=== PATIENT | male | born 1940 | race Caucasian/White ===

== ENCOUNTER 2018-06-22 10:44 | Emergency (ER) | payer MEDICARE ==
[~2018-06-22] VITALS: Ht 175.3 cm; Wt 124.7 kg
[~2018-06-22 10:44] MED LIST: ACET325 PO; ACETAMINOPHEN; ALLO100 PO; DIURETIC; DOCU100 PO; FINA5; HYDR1TAB94 PO; HYDROCODONE; LISI5 PO; TAMS.4ER PO; TEMA15 PO; [UNRECOGNIZED DRUG - REMARK]
[2018-06-22] MEDS ORDERED: Allegra-D 12 H1 EACH PO (12:12)
== END 2018-06-22 12:55 | disposition home or self-care (01) ==
LOC: ER 10:44
DX: J30.2 Other seasonal allergic rhinitis (principal); J40 Bronchitis, not specified as acute or chronic; Z91.011 Allergy to milk products; Z79.899 Other long term (current) drug therapy; I10 Essential (primary) hypertension
CPT/HCPCS: 71046; 94640; 99283-25

== ENCOUNTER 2019-11-05 11:14 | Emergency (ER) | payer MEDICARE ==
[~2019-11-05] VITALS: Ht 177.8 cm; Wt 127.9 kg
[~2019-11-05 11:14] MED LIST changes: +Allegra-D 12 H1 EACH PO; +CEPH500 PO
[2019-11-05] MEDS ORDERED: ATOR20 (12:44)
== END 2019-11-05 12:57 | disposition home or self-care (01) ==
LOC: ER 11:14
DX: S68.522A Partial traumatic transphalangeal amputation of left thumb, initial encounter (principal); I10 Essential (primary) hypertension; Z79.899 Other long term (current) drug therapy; Z91.011 Allergy to milk products; Z23 Encounter for immunization; W31.2XXA Contact with powered woodworking and forming machines, initial encounter
CPT/HCPCS: 73120; 90471; 90714; 99283-25

== ENCOUNTER 2022-05-03 07:20 | Emergency (ER) | payer MEDICARE ==
[~2022-05-03] VITALS: Ht 177.8 cm; Wt 129.3 kg
[~2022-05-03 07:20] MED LIST changes: +ATOR20
[2022-05-03] MEDS ORDERED: AMLODIPINE BESY10 MG PO (07:36)
[2022-05-03] MEDS ORDERED: KLOR-CON 1010 ME9 PO (07:36)
[2022-05-03] MEDS ORDERED: HYDCHL25 PO (07:37)
[2022-05-03] MEDS ORDERED: FINA5 PO (07:37)
[2022-05-03] MEDS ORDERED: ATOR40TA PO (07:37)
[2022-05-03] MEDS ORDERED: LISI20 PO (07:37)
[2022-05-03] MEDS ORDERED: FUROSEMIDE20 MG PO (07:37)
[2022-05-03] MEDS ORDERED: CEPH500 PO (08:29)
== END 2022-05-03 08:35 | disposition home or self-care (01) ==
LOC: ER 07:20
DX: L03.115 Cellulitis of right lower limb (principal); I87.2 Venous insufficiency (chronic) (peripheral); R60.9 Edema, unspecified; I10 Essential (primary) hypertension; Z91.011 Allergy to milk products; Z79.899 Other long term (current) drug therapy
CPT/HCPCS: 93971; 99283-25; A9270

== ENCOUNTER 2024-01-17 09:41 | Emergency (ER) | payer MEDICARE ==
[~2024-01-17] VITALS: Ht 175.3 cm; Wt 136.1 kg
[~2024-01-17 09:41] MED LIST changes: +AMLODIPINE BESY10 MG PO; +ATOR40TA PO; +FINA5 PO; +FUROSEMIDE20 MG PO; +HYDCHL25 PO; +KLOR-CON 1010 ME9 PO; +LISI20 PO
[2024-01-17 10:27] VITALS: BP 154/68
[2024-01-17 10:55] LABS: BASOPHILS ABSOLUTE AUTO 0.02 K/mm3 (0.00-0.23); BASOPHILS PERCENT AUTO 0 % (0-2); EOSINOPHILS ABSOLUTE AUTO 0.02 K/mm3 (0.00-0.68); EOSINOPHILS PERCENT AUTO 0 % (0-6); Hemoglobin 15.5 g/dL (13.5-17.5); IMMATURE GRAN ABSOLUTE AUTO 0.03 K/mm3 (0.00-0.10); IMMATURE GRAN PERCENT AUTO 0 % (0-1); LYMPHOCYTES ABSOLUTE AUTO 2.04 K/mm3 (0.84-5.20); LYMPHOCYTES PERCENT AUTO 19 % (21-46); MONOCYTES ABSOLUTE AUTO 0.91 K/mm3 (0.16-1.47); MONOCYTES PERCENT AUTO 8 % (4-13); Mean Corpuscular HGB 30.8 pg (26.0-34.0); Mean Corpuscular Volume 93 fL (80-100); Mean Platelet Volume 11.3 fL (9.1-12.4); NEUTROPHILS ABSOLUTE AUTO 7.83 K/mm3 (1.96-9.15); NEUTROPHILS PERCENT AUTO 72 % (41-73); Platelet Count 221 K/mm3 (150-400); RDW Coefficient Variation 13.7 % (11.7-14.2); RDW Standard Deviation 47.7 fL (35.1-46.3); Red Blood Cell Count 5.03 M/mm3 (4.30-5.90); White Blood Cell Count 10.85 K/mm3 (4.00-11.30)
[2024-01-17 11:14] LABS: Albumin, Blood 3.4 g/dL (3.4-5.0); Albumin/Globulin Ratio 0.8 (0.8-1.8); Bilirubin, Total 0.7 mg/dL (0.1-1.0); Bun/Creatinine Ratio 21.5 (12.0-20.0); Calcium, Blood 9.3 mg/dL (8.5-10.1); Creatinine, Blood 1.07 mg/dL (0.60-1.20); Potassium, Blood 4.5 mmol/L (3.5-5.5); Total Protein, Blood 7.4 g/dL (6.4-8.2)
== END 2024-01-17 13:33 | disposition home or self-care (01) ==
LOC: ER 09:41
PROVIDERS: Physician Assistant
DX: M17.11 Unilateral primary osteoarthritis, right knee (principal); Z91.011 Allergy to milk products; Z79.899 Other long term (current) drug therapy
CPT/HCPCS: 73562-RT; 80053; 83605; 85025; 99283-25

== ENCOUNTER → 2024-04-22 | Outpatient (CLI) | payer OTHER ==
[2024-04-22 17:26] LABS: BASOPHILS ABSOLUTE AUTO 0.02 K/mm3 (0.00-0.23); BASOPHILS PERCENT AUTO 0 % (0-2); EOSINOPHILS ABSOLUTE AUTO 0.08 K/mm3 (0.00-0.68); EOSINOPHILS PERCENT AUTO 1 % (0-6); Hematocrit 47.7 % (37.0-53.0); Hemoglobin 15.6 g/dL (13.5-17.5); IMMATURE GRAN ABSOLUTE AUTO 0.02 K/mm3 (0.00-0.10); IMMATURE GRAN PERCENT AUTO 0 % (0-1); LYMPHOCYTES ABSOLUTE AUTO 1.81 K/mm3 (0.84-5.20); LYMPHOCYTES PERCENT AUTO 22 % (21-46); MONOCYTES ABSOLUTE AUTO 0.49 K/mm3 (0.16-1.47); MONOCYTES PERCENT AUTO 6 % (4-13); Mean Corpuscular HGB 31.1 pg (26.0-34.0); Mean Corpuscular HGB Conc 32.7 g/dL (31.5-36.5); Mean Corpuscular Volume 95 fL (80-100); NEUTROPHILS ABSOLUTE AUTO 5.92 K/mm3 (1.96-9.15); NEUTROPHILS PERCENT AUTO 71 % (41-73); Platelet Count 198 K/mm3 (150-400); Red Blood Cell Count 5.01 M/mm3 (4.30-5.90); White Blood Cell Count 8.34 K/mm3 (4.00-11.30)
[2024-04-22 21:58] LABS: Iron Serum 86 ug/dL (65-175)
[2024-04-22 22:06] LABS: Anion Gap 10 mmol/L (3-11); Blood Urea Nitrogen 19 mg/dL (8-24); Bun/Creatinine Ratio 17.3 (12.0-20.0); CO2, Blood 27 mmol/L (21-32); Calcium, Blood 9.7 mg/dL (8.5-10.1); Chloride, Blood 103 mmol/L (98-108); Glomerular Filtration Rate 67 (60-); Glucose, Blood 115 mg/dL (70-99); Percent Saturation 23.3 % (20.0-50.0); Phosphorus, Blood 2.7 mg/dL (2.5-4.9); Potassium, Blood 4.3 mmol/L (3.5-5.5); Sodium, Blood 136 mmol/L (136-145); Total Iron Binding Capacity 369 ug/dL (250-450)
== END ==
LOC: LAB SHORT 16:13 → LAB 16:13
PROVIDERS: Nurse Practitioner Family
DX: I50.33 Acute on chronic diastolic (congestive) heart failure (principal); R73.03 Prediabetes
CPT/HCPCS: 80069; 83036; 83540; 83550; 85025